=== PATIENT | female | born 1970 | race Caucasian/White ===

== ENCOUNTER 2024-12-16 17:54 | Emergency (ER) | payer BC, MEDICAID, SELFPAY ==
[2024-12-16 18:02] VITALS: BP 122/79; PULSE 84; RESP 16; TEMP 36.7; O2SAT 99; BMI 25.7
--- NOTE | 2024-12-16 18:30 | XRR_ITS ---
PROCEDURE INFORMATION: Exam: XR Abdomen Exam date and time: 12/16/2024 6:35 PM Age: 54 years old Clinical indication: Abdominal pain; Localized; Right upper quadrant (ruq) TECHNIQUE: Imaging protocol: Radiologic exam of the abdomen. Views: 2 Views. Upright and supine views. COMPARISON: No relevant prior studies available. FINDINGS: Gastrointestinal tract: Normal. No bowel dilation. Intraperitoneal space: Normal. No free air. Bones/joints: Unremarkable for age. XR/XR acute abdomen series 30841 IMPRESSION: No acute findings.
--- NOTE | 2024-12-16 18:38 | ED_ITS ---
HPI - Abdominal Pain 2 General: Chief Complaint: Abdominal Pain Stated Complaint: pain under right rib Time Seen by Provider: 12/16/24 18:29 History of Present Illness: 54-year-old woman who presents emergency room with abdominal issues over the last couple of months. She says she has been having trouble with constipation. She developed some right sided abdominal pain. However she says here in the emergency room she had a large volume episode of diarrhea while in the waiting room. (In the bathroom in the waiting room). No nausea or vomiting. No specific changes today, she says she just came to the emergency room because her significant other said that if she was not better today he was bringing her in to be checked out. No fevers. No chest pain. No shortness of breath. Related Data Previous Rx's ?Medication ?Instructions ?Recorded glycerin (child) 1 supp ME DAILY PRN constipa tion 12/16/24 #12 ea magnesium citrate 296 ml PO ONCE #296 mL 12/16 polyethylene glycol 3350 17 17 g PO DAILY #510 grams 0 12/16/24 gram/dose oral powder (Miralax) Allergies Allergy/AdvReac Type Severity Reaction Status Date / Time No Known Allergies Allergy Verified 12/16/24 18:06 Review of Systems 2 Narrative: Constitutional symptoms: Negative except as documented in HPI. Skin symptoms: Negative except as documented in HPI. Eye symptoms: Negative except as documented in HPI. ENMT symptoms: Negative except as documented in HPI. Respiratory symptoms: Negative except as documented in HPI. Cardiovascular symptoms: Negative except as documented in HPI. Gastrointestinal symptoms: Negative except as documented in HPI. Genitourinary symptoms: Negative except as documented in HPI. Musculoskeletal symptoms: Negative except as documented in HPI. Neurologic symptoms: Negative except as documented in HPI. Psychiatric symptoms: Negative except as documented in HPI. Endocrine symptoms: Negative except as documented in HPI. Physical Exam 2 Narrative: EXAM NARRATIVE: General: Alert, no acute distress. Skin: Warm, dry. Head: Normocephalic, atraumatic. Neck: Supple, trachea midline. Eye: Extraocular movements are intact. Ears, nose, mouth and throat: mucosa moist. Cardiovascular: Regular, Normal peripheral perfusion. Respiratory: Lungs are clear to auscultation, respirations are non-labored, breath sounds are equal, Symmetrical chest wall expansion. Gastrointestinal: Soft, some mild diffuse tenderness in the right side of the abdomen, Non distended Musculoskeletal: Normal ROM, no deformity. Neurological: Alert and oriented, No focal neurological deficit observed. Psychiatric: Cooperative, appropriate mood & affect. Course 2 Vital Signs: Vital signs: Vital Signs Temperature 98.0 F 12/16/24 18:02 Pulse Rate 83 12/16/24 20:08 Respiratory Rate 16 12/16/24 18:02 Blood Pressure 122/79 12/16/24 18:02 Pulse Oximetry 99 12/16/24 20:08 Oxygen Delivery Me thod Room Air 12/16/24 20:08 MDM - Abdominal Pain Medical Decision Making Medical decision making: Differential diagnosis including but not limited to and based on the above HPI, review of systems and physical exam: - patient with complaint of constipation: Small bowel obstruction. Gastroparesis. Constipation. Also evaluation for urinary retention, liver disease, renal failure. Orders placed to evaluate differential diagnosis based on the above differential, HPI and physical exam Acute abdominal series: chest x-ray: No acute process. No obvious infiltrates. No pneumothorax. No cardiomegaly. This was reviewed and interpreted by myself the emergency room physician Abdomen x-ray: Nonspecific bowel gas pattern. No evidence of free air or obstruction. This was reviewed and interpreted by myself the emergency room physician. I also reviewed the radiology report. Lab Review: Laboratory results were reviewed and interpreted by myself the emergency room physician. Lab work is unremarkable. No leukocytosis. No anemia. No renal failure. Liver enzymes normal. Lipase is normal CT of the abdomen pelvis without contrast: No acute process. She does have some gallstones but no cholecystitis. This was reviewed and interpreted by myself the emergency room physician. I also reviewed the radiology report. I reviewed the patient's medical record. Reexamination: Patient remained stable. No increased work of breathing. No altered mental status. No focal motor deficits. Assessment and plan: Abdominal pain Constipation - Discharged home - Discussed plan with patient. Answered any questions. - Evaluation and treatment of this problem were appropriate in the emergency setting. Lab Data 12/16/24 20:00 12/16/24 20:00 Labs/Radiology: Radiology Impressions Chest/Abdomen X-ray 12/16/24 18:30 IMPRESSION: No acute findings. Abdomen/Pelvis CT 12/16/24 18:51 IMPRESSION: 1. Cholelithiasis without evidence of acute cholecystitis. The common bile duct is dilated without radiodense stone. Consider further evaluation with MRCP to exclude choledocholithiasis. 2. Small hiatal hernia. Laboratory Results WBC 8.19 10^3/uL (3.29-11.43) 12/16/24 20:00 RBC 4.60 10^6/uL (3.85-5.65) 12/16/24 20:00 Hgb 13.40 g/dL (11.27-16.99) 12/16/24 20:00 Hct 39.9 % (36-47) 12/16/24 20:00 MCV 86.7 fl (85-98) 12/16/24 20:00 MCH 29.1 pg (27-33) 12/16/24 20:00 MCHC 33.6 g/dL (30-55) 12/16/24 20:00 RDW 12.8 % (12.1-15.1) 12/16/24 20:00 Plt Count 262 10^3/cmm (157-399) 12/16/24 20:00 MPV 10.0 fL (7.4-10.4) 12/16/24 20:00 Neut % (Auto) 44.2 % 12/16/24 20:00 Lymph % (Auto) 47.3 % 12/16/24 20:00 Mariposa % (Auto) 5.1 % 12/16/24 20:00 Eos % (Auto) 2.3 % 12/16/24 20:00 Baso % (Auto) 1.0 % 12/16/24 20:00 Neut # (Auto) 3.62 10^3/uL (1.8-7.7) 12/16/24 20:00 Lymph # (Auto) 3.9 10^3/uL (0.8-4.8) 12/16/24 20:00 Mariposa # (Auto) 0.4 10^3/uL (0.2-0.9) 12/16/24 20:00 Eos # (Auto) 0.2 10^3/uL (0.0-0.8) 12/16/24 20:00 Baso # (Auto) 0.1 10^3/uL (0.0-0.1) 12/16/24 20:00 Nucleated RBC % (auto) 0 % 12/16/24 20:00 Nucleated RBCs # 0.0 /100WBC 12/16/24 20:00 Sodium 140 mmol/L (136-145) 12/16/24 20:00 Potassium 3.8 mmol/L (3.5-5.1) 12/16/24 20:00 Chloride 103 mmol/L (98-107) 12/16/24 20:00 Carbon Dioxide 28 mmol/L (22-29) 12/16/24 20:00 Anion Gap 12.8 (5-19) 12/16/24 20:00 BUN 13 mg/dL (6-20) 12/16/24 20:00 Creatinine 0.6 mg/dL (0.5-0.9) 12/16/24 20:00 GFR Calculation 104.2 mL/min (90-130) 12/16/24 20:00 Glucose 93 mg/dL (65-115) 12/16/24 20:00 Calculated Osmolality 290 mOsm/kg (285-295) 12/16/24 20:00 Calcium 10.5 mg/dL (8.5-10.5) 12/16/24 20:00 Total Bilirubin 0.3 mg/dL (0.15-1.2) 12/16/24 20:00 AST 19 U/L (0-32) 12/16/24 20:00 ALT 12 U/L (0-33) 12/16/24 20:00 Alkaline Phosphatase 119 U/L (35-105) H 12/16/24 20:00 Total Protein 7.4 g/dL (6.6-8.7) 12/16/24 20:00 Albumin 4.4 g/dL (3.5-5.2) 12/16/24 20:00 Globulin 3.0 g/dL (1.3-4.6) 12/16/24 20:00 Lipase 29 U/L (13-60) 12/16/24 20:00 All radiology interpretation(s) finalized by discharge Discharge Plan Discharge Patient Disposition: Home Clinical Impression: Abdominal pain, Constipation Condition: Stable Prescriptions: New magnesium citrate Solution 296 ml PO ONCE Qty: 296 0RF polyethylene glycol 3350 [Miralax] 17 gram/dose powder 17 g PO DAILY Qty: 510 0RF Rx Instructions: Take 1-2 scoops daily for the next 3 months to keep stools soft glycerin (child) Suppository 1 supp ME DAILY PRN (Reason: constipation) Qty: 12 0RF Discharge Orders: Discharge ED (Routine); Ordered 12/16/24 Ordered By: Sanaz Keenan Discharge Diet: Usual diet Discharge Activity: Increase activity as tolerated Patient Instructions: Constipation (ED), Abdominal Pain (ED), Opioid Safety, Pain Management Activity Restrictions/Additional Instructions: Thank you for choosing [facility] for your healthcare needs today. Please realize this is an emergency room and that we are providing you with a medical screening exam and this may not be complete and all inclusive of all the testing and or work up that you may need to determine your ailment or severity of your illness. You have been screened and evaluated and felt safe for discharge. Health conditions do change or evolve sometimes and as such it is important that you follow up with your Primary Doctor to be re checked, 3-5 days is a general good time frame for follow up. You are always welcome to return to the ED for re assessment if your symptoms are worsening or you have new concerns Print Language: Thai Coding Level of Care Code ED Wellness Director for Amadeo Spivey
--- NOTE | 2024-12-16 18:51 | CTR_ITS ---
PROCEDURE INFORMATION: Exam: CT Abdomen And Pelvis With Contrast Exam date and time: 12/16/2024 7:58 PM Age: 54 years old Clinical indication: Abdominal pain; Localized; Right upper quadrant (ruq); Prior surgery; Surgery date: 6+ months; Surgery type: Tubal. Csection; C/O ruq pain with constipation TECHNIQUE: Imaging protocol: Computed tomography of the abdomen and pelvis with contrast. Radiation optimization: All CT scans at this facility use at least one of these dose optimization techniques: automated exposure control; mA and/or kV adjustment per patient size (includes targeted exams where dose is matched to clinical indication); or iterative reconstruction. Contrast material: OMNI 350; Contrast volume: 100 ml; Contrast route: INTRAVENOUS (IV); COMPARISON: CR (ABDOMEN, ) 12/16/2024 6:35 PM RADIATION DOSE METRICS: Total DLP (mGy-cm): 457.68 FINDINGS: Diaphragm: A small hiatal hernia present. Liver: Tiny hepatic cysts noted. Otherwise, the liver is unremarkable. Gallbladder and biliary ducts: There are multiple gallstones without gallbladder wall thickening or pericholecystic fluid. The common bile duct is dilated measuring up to 1.3 cm in diameter. No radiodense ductal stones identified. Minimal intrahepatic biliary ductal dilatation. Pancreas: Normal. No ductal dilation. Spleen: Normal. No splenomegaly. Adrenal glands: Normal. No mass. Kidneys and ureters: Normal. No hydronephrosis. Stomach and bowel: Unremarkable. No obstruction. No mucosal thickening. Appendix: No evidence of appendicitis. Intraperitoneal space: Unremarkable. No free air. No significant fluid collection. Vasculature: Mild scattered calcific plaque involves the abdominal aorta. The abdominal aorta is free of aneurysm and dissection. Lymph nodes: Unremarkable. No enlarged lymph nodes. Urinary bladder: Unremarkable as visualized. Reproductive: Unremarkable as visualized. Bones/joints: Multilevel degenerative changes involve the spine. There is grade 2 anterolisthesis of L4 in respect to L5 secondary to bilateral L4 pars defects. Soft tissues: Unremarkable. CT/CT abdomen pelvis w con* [id number] IMPRESSION: 1. Cholelithiasis without evidence of acute cholecystitis. The common bile duct is dilated without radiodense stone. Consider further evaluation with MRCP to exclude choledocholithiasis. 2. Small hiatal hernia.
[2024-12-16] MEDS: iohexol 350 mg/mL 500 mL Btl (per mL) IV (20:01)
[2024-12-16 20:08] VITALS: PULSE 83; O2SAT 99
[2024-12-16 20:09] LABS: Basophils # 0.1 10^3/uL (0.0-0.1); Eosinophils # 0.2 10^3/uL (0.0-0.8); Eosinophils % 2.3 %; Hematocrit 39.9 % (36-47); Lymphocytes # 3.9 10^3/uL (0.8-4.8); Lymphocytes % 47.3 %; Mean Corpuscular HGB Conc 33.6 g/dL (30-55); Mean Corpuscular Hemoglobin 29.1 pg (27-33); Mean Corpuscular Volume 86.7 fl (85-98); Monocytes # 0.4 10^3/uL (0.2-0.9); Monocytes % 5.1 %; Neutrophils # 3.62 10^3/uL (1.8-7.7); Neutrophils % 44.2 %; Nucleated Red Blood Cells % 0 %; Platelet Count 262 10^3/cmm (157-399); Red Cell Distribution Width 12.8 % (12.1-15.1); White Blood Count 8.19 10^3/uL (3.29-11.43)
[2024-12-16 20:42] LABS: Alanine Aminotransferase 12 U/L (0-33); Albumin Level 4.4 g/dL (3.5-5.2); Alkaline Phosphatase 119 U/L (35-105); Anion Gap 12.8 (5-19); Aspartate Amino Transferase 19 U/L (0-32); Blood Urea Nitrogen 13 mg/dL (6-20); Calcium 10.5 mg/dL (8.5-10.5); Carbon Dioxide 28 mmol/L (22-29); Chloride 103 mmol/L (98-107); Glomerular Filtration Rate 104.2 mL/min (90-130); Glucose 93 mg/dL (65-115); Lipase 29 U/L (13-60); Osmolality Calculated 290 mOsm/kg (285-295); Potassium 3.8 mmol/L (3.5-5.1); Sodium 140 mmol/L (136-145); Total Bilirubin 0.3 mg/dL (0.15-1.2); Total Protein 7.4 g/dL (6.6-8.7)
[2024-12-16 21:21] VITALS: BP 118/84; PULSE 93; RESP 16; O2SAT 96
== END 2024-12-16 21:21 | disposition home or self-care (01) ==
PROVIDERS: Emergency Provider Emergency Medicine
DX: R10.9 Unspecified abdominal pain (principal); K59.00 Constipation, unspecified
CPT/HCPCS: 74022; 74177; 80053; 83690; 85025; 99285

== ENCOUNTER 2025-04-19 06:52 | Outpatient (CLI) | payer BC, MEDICAID, SELFPAY ==
--- NOTE | 2025-04-19 07:15 | MR_ITS ---
WS: [id number] MRI/MRCP OF THE ABDOMEN WITHOUT GADOLINIUM ENHANCEMENT TECHNIQUE: Coronal T2 Fase BH, Axial T2 Fase BH, Axial T2 FS BH, Zxial 3D Guillermo BH, Axial DWI BH, 2D MRCP Radial BH, 3D MRCP (Resp), and Axial 3D Dyn BH Post sequences. CLINICAL INFORMATION: enlarged bile duct COMPARISON: None. FINDINGS: Fatty liver. Dense cholelithiasis. Gallstones extend into the gallbladder neck near the cystic duct. Tortuous and spiral configuration of the cystic duct with proximal dilatation. Cystic duct appears to course around the common hepatic duct before insertion. No gallbladder wall thickening or pericholecystic fluid. Diffuse fusiform dilatation of the common hepatic and common bile duct although no visualized choledocholithiasis. Dilated common bile duct measures 14 mm. No evidence of pancreatic head mass. Normal pancreatic duct. Pancreatic head appears normal. Main portal vein and splenic vein appear patent. Celiac and SMA appear patent. Normal caliber abdominal aorta. No hydronephrosis in either kidney. Small bilateral renal cysts. Normal adrenal glands. Small esophageal hernia. Mild fatty infiltration of the liver. MR/MR MRCP [id number] Impression: 1. Dense cholelithiasis. No gallbladder wall thickening or pericholecystic flu id. 2. Gallstones extends near the cystic duct with dilatation of the cystic duct. Tortuous and spiral configuration to the cystic duct with dilatation of proxim al cystic duct. Cystic duct courses around the common hepatic duct before inser tion. 3. Significant fusiform dilatation of the common hepatic and common bile duct although no visualized choledocholithiasis. Common bile duct measures 14 mm. Re commend further evaluation with ERCP to evaluate for occult choledocholithiasis or ampullary stricture. Recommend correlation with biliary function studies. 4. No evidence of pancreatic head mass. Normal pancreatic duct. 5. Fatty liver. 6. Small esophageal hiatal hernia. 7. No other acute findings.
== END 2025-04-19 06:53 | disposition home or self-care (01) ==
PROVIDERS: PCP Internal Medicine; Visit Provider Student in an Organized Health Care Education/Training Program
DX: K82.8 Other specified diseases of gallbladder (principal); K80.20 Calculus of gallbladder without cholecystitis without obstruction; R93.3 Abnormal findings on diagnostic imaging of other parts of digestive tract; K76.0 Fatty (change of) liver, not elsewhere classified; K44.9 Diaphragmatic hernia without obstruction or gangrene; R93.89 Abnormal findings on diagnostic imaging of other specified body structures; N28.1 Cyst of kidney, acquired
CPT/HCPCS: 74181

== ENCOUNTER 2025-04-25 06:50 | Day surgery (SDC) | payer BC, MEDICAID, SELFPAY ==
[2025-04-25 07:08] VITALS: BP 102/81; PULSE 87; RESP 18; TEMP 36.1; O2SAT 95
[2025-04-25 07:09] VITALS: BMI 26.5
--- NOTE | 2025-04-25 07:43 | ANES.PREANE2 ---
Pre-Anesthetic Assessment Height/Weight: Height 1.6 m Weight 68.039 kg Temp Pulse Resp BP Pulse Ox O2 Del Method 97.0 F L 87 18 102/81 95 Room Air 04/25/25 07:08 04/25/25 07:08 04/25/25 07:08 04/25/25 07:08 04/25/25 07:08 04/25/25 07:08 Operation Date: 04/25/25 08:00 Proposed Procedures p EGD 40979, R12(Not Applicable) - Colin Campos MD Familial anesthetic complications: None Last took methadone yesterday Was Beta Emma taken within 24 hours: N/A Was Clonidine taken within 24 hours: N/A Last intake: Intake Last Liquid Date 04/24/25 Last Liquid Time 23:30 Last Solid Date 04/24/25 Last Solid Time 23:30 Social Tobacco and No alcohol 0.5 pack(s) per day 30 pack years Exam alert, oriented x 3, clear to auscultation bilaterally and regular rate & rhythm Airway Submandibular: within normal limits Cervical ROM: within normal limits Mallampati: Class II Dentition: chipped Comments: Comments: Several missing, denies anything to be loose History/ROS No significant history except as noted and No significant complaints Pulmonary Seasonal allergies CV/HEM None reported None reported Hepatic Hepatitis (Treated for Hep C) GI Gastroesophageal Reflux Disease (None this morning) Dilated CBD Metabolic None reported Musc/skel Scoliosis Neuropsych Neuropathy Anesthetic Plan ASA status: 3 Anesthesia: Anesthesia Evaluation, General and MAC Risk of > 500 ml blood loss (7ml/kg in children): No Medications/Allergies Home Medications ?Medication ?Instructions ?Recorded ?Confirmed ?Last Taken ?Type glycerin (child) 1 supp IA DAILY PRN constipation 12/16/24 04/20/25 04/24/25 Rx #12 ea olanzapine 5 mg tablet 4 mg PO DAILY 04/20/25 04/20/25 04/20/25 History methadone 40 mg soluble tablet 60 mg PO DAILY 04/25/25 04/25/25 04/24/25 History Allergies Allergy/AdvReac Type Severity Reaction Status Date / Time duloxetine Allergy ADR-Abdominal Verified 04/25/25 07:01 Pain Current Medications Generic Name Dose Route Start Last Admin Trade Name Freq PRN Reason Stop Dose Admin Sodium Chloride 1,000 mls @ 15 mls/hr 04/25/25 06:53 04/25/25 07:08 Sodium Chloride 0.9% IV 04/26/25 06:52 15 mls/hr .Q24H PRN Administration COLONOSCOPY FLUIDS PFSH Anesthesia Family History (Updated 03/30/25 @ 13:[address]) Family/Other Cancer lung, breast Diabetes Heart disease Social History (Updated 03/30/25 @ 13:[address]) Smoking and tobacco/nicotine status: current every day tobacco/nicotine user Alcohol intake: current Alcohol intake frequency: holidays/special occasions only
--- NOTE | 2025-04-25 08:05 | W.PM.OPSUD ---
Surgery/Procedure H&P Update DATE OF PROCEDURE: April 25, 2025 DATE H&P PERFORMED: 03/30/25 H&P UPDATE INFORMATION: I have reviewed H&P completed within last 30 days, I have examined patient prior to procedure and No changes to prior documentation PLANNED PROCEDURE: Operation Date: 04/25/25 08:00 Proposed Procedures p EGD 56298, R12(Not Applicable) - Colin Campos MD
[2025-04-25 08:16] VITALS: BP 108/73; PULSE 76; RESP 14; TEMP 36.3; O2SAT 93
[2025-04-25 08:30] VITALS: BP 118/74; PULSE 72; RESP 16; O2SAT 96
[2025-04-25 08:45] VITALS: BP 115/76; PULSE 69; RESP 16; O2SAT 96
== END 2025-04-25 09:00 | disposition home or self-care (01) ==
PROVIDERS: PCP Internal Medicine; Visit Provider Student in an Organized Health Care Education/Training Program
PROC: 0DJ08ZZ Inspection of Upper Intestinal Tract, Via Natural or Artificial Opening Endoscopic (ICD-10-PCS; principal; 2025-04-25 08:00)
DX: K29.50 Unspecified chronic gastritis without bleeding (principal); K44.9 Diaphragmatic hernia without obstruction or gangrene; K21.9 Gastro-esophageal reflux disease without esophagitis; K82.9 Disease of gallbladder, unspecified; M41.9 Scoliosis, unspecified; F17.210 Nicotine dependence, cigarettes, uncomplicated; Z79.899 Other long term (current) drug therapy
CPT/HCPCS: 43239; 45380; 88305; J2704; J7030

== ENCOUNTER 2025-06-09 13:00 | Emergency (ER) | payer BC, MEDICAID, SELFPAY ==
--- OUTSIDE RECORDS SUMMARY | 2025-05-09 10:00 | XMS_ITS ---
Author Organization [facility] Address [address] [place] [address] Care Team Providers Care Virology Teacher Name Role Phone Santana Recinos Primary Care Provider REASON FOR VISIT RASH Encounters Encounter Location Date Provider Diagnosis [facility] [address] [place] [phone] 05/09/2025 Santana Recinos Plan Of Treatment No Information Progress Notes * THEODORE TAYLOR RDOB:[birth year] (55 yo F)Acc No.[id number]:05/09/2025 Progress Notes Patient: Easton FULLERTHEODORE ALMENDAREZ Provider: Wilber Recinos MD :1970 A ge:55 Y S ex:Female Date:05/09/2025 Address:[address] [place] [id number] Subjective: * Chief Complaints: * R TREVOR Billing Information: * Procedure Codes: Care Plan Details* * Electronic signature of Leonel Recinos MD on 06/09/2025 at 01:06 PM CDT Sign off status: Pending * Provider: Wilber Recinos MD Date: 05/09/2025 Generated for Fab bloom/Luis Alberto/Kaitlinitting on: 06/09/2025 01:06 PM CDT
--- OUTSIDE RECORDS SUMMARY | 2025-05-10 11:20 | XMS_ITS ---
Author Organization [facility] Address [address] [place] [address] Care Team Providers Care Tram Operator Name Role Phone Santana Recinos Primary Care Provider REASON FOR VISIT Poison Nayeli Encounters Encounter Location Date Provider Diagnosis [facility] [address] [place] [phone] 05/10/2025 Santana Recinos Plan Of Treatment No Information Progress Notes * THEODORE TAYLOR RDOB:[birth year] (55 yo F)Acc No.[id number]:05/10/2025 Progress Notes Patient: Easton THEODORE BERNARDO Provider: Wilber Recinos MD :1970 A ge:55 Y S ex:Female Date:05/10/2025 Address:[address] [place], [place] [phone] Subjective: * Chief Complaints: * P oison Nayeli Plan: * Preventive Medicine: Screenings: A s Listed Below * . L AST WELLNESS VISIT (if today's visit is wellness, use today's date): Date: 0 07/14/2024 * B REAST CANCER SCREENING: Date of most recent screenin 12/06/2022 * C ERVICAL CANCER SCREENING: Cancer screening cervical (age 21-64)?Annual pap smear * Date of the last PAP Smear : 0 07/17/2022 C OLORECTAL CANCER SCREENING: Date of last colonoscopy 0 06/10/2024 [facility] V ACCINATIONS: Influenza vaccinations: * , Refuses Billing Information: * Procedure Codes: Care Plan Details* * Electronic signature of Leonel Recinos MD on 06/09/2025 at 01:06 PM CDT Sign off status: Pending * Provider: Wilber Recinos MD Date: 0 05/10/2025 Generated for Fab bloom/Luis Alberto/Ami on: 0 06/09/2025 01:06 PM CDT
--- OUTSIDE RECORDS SUMMARY | 2025-05-29 10:00 | XMS_ITS ---
Author Organization [facility] Address [address] [place] [address] Care Team Providers Care Process Area Supervisor Name Role Phone Santana Recinos Primary Care Provider [phone] REASON FOR VISIT MEDICATION, Pt. is due for a cervical cancer screening Encounters Encounter Location Date Provider Diagnosis [facility] [address] [place] [phone] 05/29/2025 Santana Recinos Plan Of Treatment No Information Progress Notes * THEODORE TAYLOR RDOB:[birth year] (55 yo F)Acc No.[id number]:05/29/2025 Progress Notes Patient: [place]on THEODORE BERNARDO Provider: Wilber Recinos MD :1970 A ge:55 Y S ex:Female Date:05/29/2025 Address:[address] [place], [place] [phone] Subjective: * Chief Complaints: * M EDICATIONPt. is due for a cervical cancer screening Plan: * Preventive Medicine: Screenings: A s [...] SCREENING: Date of last colonoscopy 0 06/10/2024 [facility] V ACCINATIONS: Influenza vaccinations: * , Refuses Billing Information: * Procedure Codes: Care Plan Details* * Electronic signature of Leonel Recinos MD on 06/09/2025 at 01:06 PM CDT Sign off status: Pending * Provider: Wilber Recinos MD Date: 05/29/2025 Generated for Fab bloom/Luis Alberto/Ami on: 06/09/2025 01:06 PM CDT
--- OUTSIDE RECORDS SUMMARY | 2025-06-09 13:07 | XMS_ITS | Patient Health Record ---
Author Organization [facility] Address [address] [place] [address] Care Team Providers Care Haulage Boss Name Role Phone Santana Recinos Primary Care Provider [phone] Allergies Allergen (clinical drug ingredient) Drug/Non Drug Allergy documented on EMR Reaction Allergy Type Onset Date Status buprenorphine / naloxone Buprenorphine HCl-Naloxone HCl Unknown Drug Allergy Active Results Component Value Reference Range Notes Diagnostic Colonoscopy-[id number] Reviewed date:06/13/2024 11:19:48 AM Interpretation: Performing Lab: Notes/Report: Reason For Referral Reason First available [facility] general surgery. Symptomatic cholelithiasis. Diagnosis 1 Calculus of gallblad jeronimo with chronic cholecystitis with obstruction (K80.11) Referral Organization [facility] Referring Provider First Name Grady lambert Referring Provider Last Name Jorje Referring Provider Speciality Internal M edicine Referred Provider Specialty General Surg inge General Notes Ana Cristina Flores 05:10:00 PM >faxed [facility] General surgeryWisam Heidi 04/12/2025 10:53:29 AM >CAN NOT GET AHOLD OF GENERAL SURGERY YET, Debbie Pagan 04/18/2025 04:28:44 PM >Jose Marcelo pt was [facility] done 04/19/25, Karol Joel 04/19/2025 08:14:59 AM >PROGRESS NOTES IN REFERRAL FILE Referral Priority Routine Medications Medication SIG (Take, Route, Frequency, Duration) Notes Start Date End Date Status Pantoprazole Sodium 40 MG Tablet Delayed Release 1 tablet 1/2 to 1 hour before morning meal Orally Once a day; Duration: 30 day(s) 11/10/2024 Active OLANZapine 5 MG Tablet 1 tablet Orally O nce a day; Duration: 90 days Active DULoxetine HCl 60 MG Capsule Delayed Release Particles 1 capsule Orally Once a day; Duration: 90 days 01/25/2025 Active Ondansetron HCl 4 MG Tablet 1 tablet Orally every six hours PRN; Duration: 30 days 12/12/2024 Active tiZANidine HCl 4 MG Tablet 1 tablet at bedtime as needed Orally Once a day; Duration: 90 days 12/07/2025 Active Buprenorphine HCl-Naloxone HCl 8-2 MG Tablet Sublingual 1 tablet under the tongue and allow to dissolve Sublingual TID; Duration: 30 days 02/14/2025 06/14/2025 Not-Taking Ibuprofen 800 MG Tablet 1 tablet with fo od or milk as needed Orally every 8 hrs; Duration: 30 days 03/17/2025 07/15/2025 Active Immunizations Vaccine Route Administration Date Status Comme nts Flucelvax Trivalent, Syringe 0.5 mL, PF Unknown 025 Refused Social History Tobacco Use: Social History Observation Description Date Details (start date - stop date) Current Smoker NA - NA Social History Depression Screening Social Info Question Answer Notes depression screening findings Findings Negative (0 -4) 01/02/25 PHQ-9 Little interest or p yanely in doing things Not at all Feeling down, depressed, or hopeless Not at all Trouble falling or staying asleep, or sleeping t oo much Not at all Feeling tired or having little energy Not at all Poor appetite or overeating Not at all Feeling bad about yourself, or that you are a failure, or have let yourself or your family down Not at all Trouble concentrating on thi ngs, such as reading the newspaper or watching television Not at all Moving or speaking so slowly that other people could have noticed. Or the opposite ? being so fidgety or restless that you have been moving around a lot more than usual Not at all Thoughts that you would be b brett off , or of hurting yourself in some way Not at all Total Score 0 Drugs/Alcohol: Social Info Question Answer Notes Drugs Have you used drugs other than those for medical reasons in the past 12 months? No Drug/Alcohol: Social Info Question Answer Notes AUDIT-C (Standard) Did you have a drink containing alcohol in the past year? No Points 0 Interpretation Negative Tobacco Use: Social Info Question Answer Notes Tobacco Control (Standard) Tobacco use: Current smoker How often do you smoke cigarettes? Every day How many cigarettes a day do you smoke? 6-10 Section Notes: Tobacco: 04/21/24 Depression: 10/07/24 Tobacco: 11/10/24 Depression: 10/07/24 Tobacco: 01/02/25 Depression: 01/02/25 Tobacco: 01/02/25 Depression: 01/02/25 CIME Dep/tob: 01/02/25 CIME Dep/tob: 01/02/25 Tobacco: 04/21/24 Depression: 10/07/24 CIME Dep/tob: 01/02/25 Problems Problem Type SNOMED Code ICD Code Onset Dates Problem Status W/U Status Risk Notes Problem Tobacco user (232822527) Nicotine dependence, cigarettes, uncomplicated (F17.210) Active confirmed Problem Chronic cholecystitis due to gallbladder calculus with obstruction (6181353686776054 ) Calculus of gallbladder with chronic cholecystitis with obstruction (K80.11) Active confirmed Problem Cervical radiculopathy (01513294) Radiculopathy, cervical region (M54.12) Active confirmed Problem Screening for colon cancer (202052031) Screening for colon cancer (Z12.11) Active confirmed Problem Bipolar 1 disorder (306868599) Bipolar 1 disorder (F31.9) Active confirmed Problem Sciatica (37342941) Sciatica of right side (M54.31) Active confirmed Problem Lumbar radiculopathy (090006635) Lumbar back pain with radiculopathy affecting right lower extremity (M54.16) Active confirmed Problem Neck pain (97674191) Cervical pain (neck) (M54.2) Active confirmed Problem History of hepatitis C (28004105371806) History of hepatitis C (Z86.19) Active confirmed Problem Tobacco use (417120768) Tobacco use disorder (F17.200) Active confirmed Vital Signs Heart Rate 80 /min 03/28/2025 Temperature 97.7 degrees Fahrenheit 03/28/2025 Blood pressure diastolic 81 mm Hg 03/28/2025 Oximetry 95 % 03/28/2025 Height-cm 162.56 cm 03/28/2025 Weight-kg 71.21 kg 03/28/2025 Height 64 in 03/28/2025 Blood pressure systolic 124 mm Hg 03/28/2025 Weight 157 lbs 03/28/2025 BMI 26.95 kg/m2 03/28/2025 Encounters Encounter Location Date Provider Diagnosis [facility] [address] [place], [place] [phone] 06/10/2024 Santana Recinos Screening for colon cancer Z12.11 [facility] [address] [address] 06/20/2024 Santana Recinos Bipolar 1 disorder F31.9 ; History of hepatitis C Z86.19 ; Screening for colon cancer Z12.11 ; Cervical pain (neck) M54.2 ; Cigarette smoker F17.210 and Body mass index [BMI] 24.0-24.9, adult Z68.24 [facility] [address] [place] [address] 07/12/2024 Santana Recinos Lumbar back pain wit h radiculopathy affecting right lower extremity M54.16 ; History of hepatitis C Z86.19 and Cigarette smoker F17.210 [facility] [address] [place] [phone] 08/02/2024 Santana Recinos Lumbar back pain wit h radiculopathy affecting right lower extremity M54.16 ; Radiculopathy, cervical region M54.12 ; Cigarette smoker F17.210 and Body mass index [BMI] 24.0-24.9, adult Z68.24 [facility] [address] [place] [phone] 09/05/2024 Santana Recinos Cervical pain (neck) M54.2 and Radiculopathy, cervical region M54.12 [facility] [address] [place] [address] 10/07/2024 Santana Recinos Lumbar back pain wit h radiculopathy affecting right lower extremity M54.16 ; History of hepatitis C Z86.19 and Depression screen Z13.31 [facility] [address] [place] [address] 11/10/2024 Santana Recinos Dyspepsia R10.13 ; History of hepatitis C Z86.19 ; Lumbar back pain with radiculopathy affecting right lower extremity M54.16 and Cervical pain (neck) M54.2 [facility] [address] [place] [phone] 12/12/2024 Christelisa Recinos Lumbar back pain wit h radiculopathy affecting right lower extremity M54.16 ; History of hepatitis C Z86.19 ; Nicotine dependence, cigarettes, uncomplicated F17.210 ; Tobacco use disorder F17.200 and Depression screen Z13.31 [facility] [address] [address] 01/02/2025 Christophbaron Recinos Lumbar back pain wit h radiculopathy affecting right lower extremity M54.16 ; Depression screen Z13.31 and Cigarette nicotine dependence without complication F17.210 [facility] [address] [address] 01/25/2025 Christophbaron Recinos Cervical pain (neck) M54.2 ; Radiculopathy, cervical region M54.12 ; Lumbar back pain with radiculopathy affecting right lower extremity M54.16 ; Depression screen Z13.31 ; Acute nausea with nonbilious vomiting R11.2 and Diarrhea R19.7 [facility] [address] [address] 02/14/2025 Christophbaron Recinos Cervical pain (neck) M54.2 ; Lumbar back pain with radiculopathy affecting right lower extremity M54.16 ; Tobacco use disorder F17.200 and Depression screen Z13.31 [facility] [address] [place] [phone] 03/17/2025 Santana Rosenbaumran Chronic constipation K59.09 ; Depression screen Z13.31 ; Encounter for immunization Z23 and Immunization not carried out because of patient refusal Z28.21 [facility] [address] [place] [phone] 03/28/2025 Santana Recinos Calculus of gallbladder with chronic cholecystitis with obstruction K80.11 [facility] [address] [address] 06/20/2024 [facility] [address] [place] [address] 07/12/2024 [facility] [address] [place] [address] 08/09/2024 [facility] [address] [place] [address] 09/02/2024 [facility] [address] [place] [address] 10/11/2024 [facility] [address] [place] [address] 11/03/2024 [facility] [address] [place] [address] 11/14/2024 [facility] [address] [place] [address] 01/26/2025 [facility] Cervical pain (neck) M54.2 Assessments Encounter Date Diagnosis (ICD Code) Assessment Notes Treatment Notes Treatment Clinical Notes Section Notes 06/10/2024 Screening for colon cancer (ICD-10 - Z12.11) 06/20/2024 Bipolar 1 disorder (ICD-10 - F31.9) 06/20/2024 History of hepatitis C (ICD-10 - Z86.19) 08/02/2024 Lumbar back pain with radiculopathy affecting right lower extremity (ICD-10 - M54.16) Doing really well 08/02/2024 Radiculopathy, cervical region (ICD-10 - M54.12) 07/12/2024 Lumbar back pain with radiculopathy affecting right lower extremity (ICD-10 - M54.16) She has failed NSAIDs and local injection. She needs imaging. 07/12/2024 History of hepatitis C (ICD-10 - Z86.19) 09/05/2024 Cervical pain (neck) (ICD-10 - M54.2) 11/10/2024 Dyspepsia (ICD-10 - R10.13) 11/10/2024 History of hepatitis C (ICD-10 - Z86.19) 12/12/2024 Lumbar back pain with radiculopathy affecting right lower extremity (ICD-10 - M54.16) 12/12/2024 History of hepatitis C (ICD-10 - Z86.19) 10/07/2024 Lumbar back pain with radiculopathy affecting right lower extremity (ICD-10 - M54.16) 10/07/2024 History of hepatitis C (ICD-10 - Z86.19) 01/02/2025 Lumbar back pain with radiculopathy affecting right lower extremity (ICD-10 - M54.16) 01/02/2025 Depression screen (ICD-10 - Z13.31) 01/25/2025 Cervical pain (neck) (ICD-10 - M54.2) 01/25/2025 Radiculopathy, cervical region (ICD-10 - M54.12) 01/26/2025 Cervical pain (neck) (ICD-10 - M54.2) 02/14/2025 Cervical pain (neck) (ICD-10 - M54.2) 03/17/2025 Chronic constipation (ICD-10 - K59.09) 03/28/2025 Calculus of gallbladder with chronic cholecystitis with obstruction (ICD-10 - K80.11) 03/17/2025 Depression screen (ICD-10 - Z13.31) 02/14/2025 Lumbar back pain with radiculopathy affecting right lower extremity (ICD-10 - M54.16) 01/25/2025 Lumbar back pain with radiculopathy affecting right lower extremity (ICD-10 - M54.16) 01/02/2025 Cigarette nicotine dependence without complication (ICD-10 - F17.210) 10/07/2024 Depression screen (ICD-10 - Z13.31) 12/12/2024 Nicotine dependence, cigarettes, uncomplicated (ICD-10 - F17.210) I spent 3 minutes on tobacco cessation counseling. Patient is not willing to attempt cessation. I will continue to employment counselor and educate patient in future appointments about the harm and risks of tobacco abuse. I have discussed different medication options with patient today including chantix, wellbutrin, patches, gum and the process of slowly cutting back on nicotine. 11/10/2024 Lumbar back pain with radiculopathy affecting right lower extremity (ICD-10 - M54.16) 09/05/2024 Radiculopathy, cervical region (ICD-10 - M54.12) 07/12/2024 Cigarette smoker (ICD-10 - F17.210) 08/02/2024 Cigarette smoker (ICD-10 - F17.210) 06/20/2024 Screening for colon cancer (ICD-10 - Z12.11) 06/20/2024 Cervical pain (neck) (ICD-10 - M54.2) 08/02/2024 Body mass index [BMI] 24.0-24.9, adult (ICD-10 - Z68.24) 11/10/2024 Cervical pain (neck) (ICD-10 - M54.2) 12/12/2024 Tobacco use disorder (ICD-10 - F17.200) 01/25/2025 Depression screen (ICD-10 - Z13.31) 02/14/2025 Tobacco use disorder (ICD-10 - F17.200) 03/17/2025 Encounter for immunization (ICD-10 - Z23) 03/17/2025 Immunization not carried out because of patient refusal (ICD-10 - Z28.21) 02/14/2025 Depression screen (ICD-10 - Z13.31) 01/25/2025 Acute nausea with nonbilious vomiting (ICD-10 - R11.2) 12/12/2024 Depression screen (ICD-10 - Z13.31) 06/20/2024 Cigarette smoker (ICD-10 - F17.210) 06/20/2024 Body mass index [BMI] 24.0-24.9, adult (ICD-10 - Z68.24) 01/25/2025 Diarrhea (ICD-10 - R19.7) 06/10/2024 Other see scanned document from [facility] in patients documents. 01/25/2025 Other refilled ondansetron Plan Of Treatment No Information Insurance Providers Payer Name Payer Address Payer Phone Subscriber Number Group Number Insured Name Patient Relationship to Insured Coverage Start Date Coverage End Date [place] [address] [place] [address] [id number] THEODORE TAYLOR Self - patient is the insured Medications Administered Medication Instructions Date of Administration Dosage Notes BUPivacaine HCl 05/31/2024 1 mL DEPO-Medrol 05/31/2024 80 mg Medical (General) History Medical History History ICD Code scoliosis Arthritis bipolar disorder hepatitis C 2008 Back Pain Hospitalization History Reason Date(Month/Year) c section x 4
[2025-06-09 13:09] VITALS: BP 133/84; PULSE 86; RESP 16; TEMP 36.3; O2SAT 98
[2025-06-09 14:13] LABS: Hematocrit 41.1 % (36-47); Hemoglobin 13.40 g/dL (11.27-16.99); Mean Corpuscular HGB Conc 32.6 g/dL (30-55); Mean Corpuscular Hemoglobin 28.2 pg (27-33); Mean Corpuscular Volume 86.5 fl (85-98); Nucleated Red Blood Cells % 0 %; Platelet Count 261 10^3/cmm (157-399); Red Blood Count 4.75 10^6/uL (3.85-5.65); White Blood Count 15.10 10^3/uL (3.29-11.43)
[2025-06-09 14:40] LABS: Alanine Aminotransferase 10 U/L (0-33); Albumin Level 3.9 g/dL (3.5-5.2); Alkaline Phosphatase 161 U/L (35-105); Anion Gap 18.1 (5-19); Aspartate Amino Transferase 16 U/L (0-32); Blood Urea Nitrogen 11 mg/dL (6-20); Calcium 10.8 mg/dL (8.5-10.5); Carbon Dioxide 25 mmol/L (22-29); Chloride 96 mmol/L (98-107); Creatinine Clr Calc Pharmacy 98.0988; Globulin 3.6 g/dL (1.3-4.6); Glucose 130 mg/dL (65-115); Lipase 13 U/L (13-60); Osmolality Calculated 283 mOsm/kg (285-295); Potassium 3.1 mmol/L (3.5-5.1); Sodium 136 mmol/L (136-145); Total Protein 7.5 g/dL (6.6-8.7)
--- NOTE | 2025-06-09 15:01 | ED_ITS ---
Documented by User: PARDEEP Womack 06/09/25 16:51 HPI - Abdominal Pain 2 General: Chief Complaint: Abdominal Pain Stated Complaint: N/D Upper R ABD Time Seen by Provider: 06/09/25 14:49 History of Present Illness: Patient is a 55-year-old female with recent diagnosis of cholelithiasis/cholecystitis, reports to ED with diarrhea for 2 days. Patient states that she feels a diaper of diarrhea in an hour. No recent antibiotics. She does go to the [place]. Recent poison lc to her extensor surfaces bilateral distal extremities. Patient states she has not had any nausea, vomiting. She has some abdominal pain that she believes is associated with her cholelithiasis. She is currently awaiting consultation from surgeon in [place] to reevaluate this issue and possible cholecystectomy. No fevers. No sick contacts. Associated Symptoms: Reports diarrhea and nausea; Denies chills, fever(s) and vomiting Related Data Home Medications ?Medication ?Instructions ?Recorded ?Confirmed olanzapine 5 mg tablet 5 mg PO QPM 04/20/25 5 methadone 40 mg soluble tablet 60 mg PO QAM 04/25/25 0 06/09/25 ondansetron HCl 4 mg tablet 4 mg PO Q6H PRN Nausea And Vomiting 06/09/25 06/09/25 pantoprazole 40 mg tablet,delayed 40 mg PO DAILY 06/0906/09/25 release Previous Rx's ?Medication ?Instructions ?Recorded ondansetron 4 mg disintegrating 4 mg PO Q8H PRN nausea and 06/09/25 tablet vomiting 4 days #14 tabs Allergies Allergy/AdvReac Type Severity Reaction Status Date / Time duloxetine Allergy ADR-Abdominal Verified 05/08/25 08:32 Pain Review of Systems 2 General: Reports: 10 or more systems reviewed and unremarkable except in HPI and below Const: Denies: fever(s) or chills Eyes: Denies: change in vision or blurry vision ENMT: Denies: throat pain Card: Denies: chest pain or palpitations GI: Reports: abdominal pain, nausea and diarrhea; Denies: vomiting : Denies: flank pain or difficulty voiding Musc: Denies: neck pain or back pain Skin/Breast: Denies: rash or pruritus Neuro: Denies: headache(s) or numbness in extremities PFSH ED 2 PFSH: Family History Family/Other Cancer lung, breast Diabetes Heart disease Social History Smoking and tobacco/nicotine status: current every day tobacco/nicotine user Alcohol intake: current Alcohol intake frequency: holidays/special occasions only Physical Exam 2 Const: COMMON NORMALS: no acute distress, average body habitus, patient oriented x3 and alert HENMT: COMMON NORMALS: normocephalic and atraumatic HEAD & SCALP: n ormocephalic and atraumatic Neck/C-Spine: COMMON NORMALS: full ROM and no lymphadenopathy Lymph: LYMPHATIC: no lymphadenopathy noted Chest: COMMONS NORMALS: normal inspection of the chest and normal palpation of entire chest wall Resp: COMMON NORMALS: normal respiratory effort, No retractions and clear to auscultation bilaterally AUSCULTATION: clear to auscultation bilaterally Cardio: COMMON NORMALS: regular rate and regular rhythm RATE: regular rate RHYTHM: regular rhythm GI: COMMON NORMALS: Soft to palpation AUSCULTATION: Yes Hyperactive bowel sounds present PALPATION: Yes Soft to palpation, Yes Tenderness to palpation present (GI) Details: RUQ (mild), No Guarding due to palpation present (GI) and No Rigid due to palpation : COMMON NORMALS: Yes no CVA tenderness BLADDER/KIDNEY EXAM: Yes no CVA tenderness Back/Pelvis: COMMON NORMALS: no CVA tenderness Extremity: COMMON NORMALS: normal to inspection, full ROM and capillary refill normal Neuro: COMMON NORMALS: patient oriented x3 SENSORIUM/ORIENTATION: Yes alert Psych: COMMON NORMALS: mental status grossly normal, Normal thought process present, cooperative, normal affect and speech normal SPEECH: Yes normal speech THOUGHT PROCESS: Normal thought process present Skin: COMMON NORMALS: no rashes or lesions noted and no wounds GENERAL SKIN EXAM: no rashes or lesions noted Course 2 Reevaluation(s): Reevaluation #1: Patient has not had further stools. Vital Signs: Vital signs: Vital Signs Temperature 97.4 F L 06/09/25 13:09 Pulse Rate 71 06/09/25 18:00 Respiratory Rate 16 06/09/25 18:00 Blood Pressure 104/60 06/09/25 17:00 Pulse Oximetry 96 06/09/25 18:00 Oxygen Delivery Me thod Room Air 06/09/25 18:00 MDM - Abdominal Pain Lab Data 06/09/25 13:50 06/09/25 13:50 Labs/Radiology: Radiology Impressions Abdomen X-Ray 06/09/25 15:01 IMPRESSION: No acute findings. Laboratory Results WBC 15.10 10^3/uL (3.29-11.43) H 06/09/25 13:50 RBC 4.75 10^6/uL (3.85-5.65) 06/09/25 13:50 Hgb 13.40 g/dL (11.27-16.99) 06/09/25 13:50 Hct 41.1 % (36-47) 06/09/25 13:50 MCV 86.5 fl (85-98) 06/09/25 13:50 MCH 28.2 pg (27-33) 06/09/25 13:50 MCHC 32.6 g/dL (30-55) 06/09/25 13:50 RDW 12.7 % (12.1-15.1) 06/09/25 13:50 Plt Count 261 10^3/cmm (157-399) 06/09/25 13:50 MPV 10.4 fL (7.4-10.4) 06/09/25 13:50 Neut % (Auto) 59.2 % 06/09/25 13:50 Lymph % (Auto) 18.7 % 06/09/25 13:50 Morris % (Auto) 4.0 % 06/09/25 13:50 Eos % (Auto) 17.4 % 06/09/25 13:50 Baso % (Auto) 0.3 % 06/09/25 13:50 Neut # (Auto) 8.95 10^3/uL (1.8-7.7) H 06/09/25 13:50 Lymph # (Auto) 2.8 10^3/uL (0.8-4.8) 06/09/25 13:50 Morris # (Auto) 0.6 10^3/uL (0.2-0.9) 06/09/25 13:50 Eos # (Auto) 2.6 10^3/uL (0.0-0.8) H 06/09/25 13:50 Baso # (Auto) 0.1 10^3/uL (0.0-0.1) 06/09/25 13:50 Nucleated RBC % (auto) 0 % 06/09/25 13:50 Nucleated RBCs # 0.0 /100WBC 06/09/25 13:50 Sodium 136 mmol/L (136-145) 06/09/25 13:50 Potassium 3.1 mmol/L (3.5-5.1) L 06/09/25 13:50 Chloride 96 mmol/L (98-107) L 06/09/25 13:50 Carbon Dioxide 25 mmol/L (22-29) 06/09/25 13:50 Anion Gap 18.1 (5-19) 06/09/25 13:50 BUN 11 mg/dL (6-20) 06/09/25 13:50 Creatinine 0.6 mg/dL (0.5-0.9) 06/09/25 13:50 GFR Calculation 103.8 mL/min (90-130) 06/09/25 13:50 Glucose 130 mg/dL (65-115) H 06/09/25 13:50 Calculated Osmolality 283 mOsm/kg (285-295) L 06/09/25 13:50 Calcium 10.8 mg/dL (8.5-10.5) H 06/09/25 13:50 Total Bilirubin 0.3 mg/dL (0.15-1.2) 06/09/25 13:50 AST 16 U/L (0-32) 06/09/25 13:50 ALT 10 U/L (0-33) 06/09/25 13:50 Alkaline Phosphatase 161 U/L (35-105) H 06/09/25 13:50 Total Protein 7.5 g/dL (6.6-8.7) 06/09/25 13:50 Albumin 3.9 g/dL (3.5-5.2) 06/09/25 13:50 Globulin 3.6 g/dL (1.3-4.6) 06/09/25 13:50 Lipase 13 U/L (13-60) 06/09/25 13:50 C. difficile (PCR) Negative (Negative) 06/09/25 16:33 XR interpretation done by ED provider, pending radiology final review ED provider radiology interpretation(s): Non specific bowel gas pattern, no dilation. Discharge Plan Discharge Patient Disposition: Home Clinical Impression: Gastroenteritis, Hypokalemia, Hypercalcemia Condition: Stable Prescriptions: New ondansetron 4 mg tablet,disintegrating 4 mg PO Q8H PRN (Reason: nausea and vomiting) 4 Days Qty: 14 0RF No Action olanzapine 5 mg Tablet 5 mg PO QPM methadone 40 mg Tablet,Soluble 60 mg PO QAM ondansetron HCl 4 mg tablet 4 mg PO Q6H PRN (Reason: Nausea And Vomiting) pantoprazole 40 mg tablet,delayed release (DR/EC) 40 mg PO DAILY Discharge Orders: Discharge ED (Routine); Ordered 06/09/25 Ordered By: Al العلي Referrals: Mendez Recinos MD [Primary Care Provider, Internal Medicine] Patient Instructions: Opioid Safety, Pain Management, Patient Portal & Mable Instructions Activity Restrictions/Additional Instructions: You will need to have your labs redrawn with your doctor next week regarding your elevated calcium. This is probably due to dehydration, or taking extra calcium such as Tums. Do not take exogenous calcium such as Tums. Continue your increase of fluid intake. Zofran has been sent to the pharmacy for nausea, and does help with diarrhea. Do not take more than 3 times a day. Print Language: Angolan Sign Out Sign Out Data: Patient Sign Out occurred on 06/09/25 at 17:09. Patient's care was discussed, and care was transferred from PARDEEP Womack to PARDEEP Stephen. Coding Level of Care Code ED Employee Benefits Insurance Agent for [employer] Documented by User: PARDEEP Stephen 06/09/25 20:07 HPI - Abdominal Pain 2 General: Chief Complaint: Abdominal Pain Stated Complaint: N/D Upper R ABD Time Seen by Provider: 06/09/25 14:49 Related Data Home Medications ?Medication ?Instructions ?Recorded ?Confirmed olanzapine 5 mg tablet 5 mg PO QPM 04/20/25 5 methadone 40 mg soluble tablet 60 mg PO QAM 04/25/25 0 06/09/25 ondansetron HCl 4 mg tablet 4 mg PO Q6H PRN Nausea And Vomiting 06/09/25 06/09/25 pantoprazole 40 mg tablet,delayed 40 mg PO DAILY 06/0906/09/25 release Previous Rx's ?Medication ?Instructions ?Recorded ondansetron 4 mg disintegrating 4 mg PO Q8H PRN nausea and 06/09/25 tablet vomiting 4 days #14 tabs Allergies Allergy/AdvReac Type Severity Reaction Status Date / Time duloxetine Allergy ADR-Abdominal Verified 05/08/25 08:32 Pain PFSH ED 2 PFSH: Family History Family/Other Cancer lung, breast Diabetes Heart disease Social History Smoking and tobacco/nicotine status: current every day tobacco/nicotine user Alcohol intake: current Alcohol intake frequency: holidays/special occasions only Course 2 Vital Signs: Vital signs: Vital Signs Temperature 97.4 F L 06/09/25 13:09 Pulse Rate 71 06/09/25 18:00 Respiratory Rate 16 06/09/25 18:00 Blood Pressure 104/60 06/09/25 17:00 Pulse Oximetry 96 06/09/25 18:00 Oxygen Delivery Me thod Room Air 06/09/25 18:00 MDM - Abdominal Pain Medical Decision Making Patient presented with diarrhea, states she is currently undergoing evaluation in [place] for her gallbladder and possible cholecystectomy. Care of patient was assumed by myself at shift change. Patient had diarrhea for the past couple of days, no recent antibiotic use. Her vitals have been stable. Lab work shows mild elevation in her white blood cell count with a left shift, suspect secondary to the diarrhea. Mild decrease in her potassium, she is given oral potassium here. C. difficile PCR was negative, stool sample also obtained for send out patient will be informed of those results. The rest of her metabolic panel and lab work overall was unremarkable including negative abdominal x-ray for any obstructive process. After fluids and nausea medications here, patient states she feels quite a bit better. She states she is ready to go home, will send Zofran to pharmacy, will have her do clear liquid diet at home and return precautions are given. Lab Data 06/09/25 13:50 06/09/25 13:50 Labs/Radiology: Radiology Impressions Abdomen X-Ray 06/09/25 15:01 IMPRESSION: No acute findings. Laboratory Results WBC 15.10 10^3/uL (3.29-11.43) H 06/09/25 13:50 RBC 4.75 10^6/uL (3.85-5.65) 06/09/25 13:50 Hgb 13.40 g/dL (11.27-16.99) 06/09/25 13:50 Hct 41.1 % (36-47) 06/09/25 13:50 MCV 86.5 fl (85-98) 06/09/25 13:50 MCH 28.2 pg (27-33) 06/09/25 13:50 MCHC 32.6 g/dL (30-55) 06/09/25 13:50 RDW 12.7 % (12.1-15.1) 06/09/25 13:50 Plt Count 261 10^3/cmm (157-399) 06/09/25 13:50 MPV 10.4 fL (7.4-10.4) 06/09/25 13:50 Neut % (Auto) 59.2 % 06/09/25 13:50 Lymph % (Auto) 18.7 % 06/09/25 13:50 Morris % (Auto) 4.0 % 06/09/25 13:50 Eos % (Auto) 17.4 % 06/09/25 13:50 Baso % (Auto) 0.3 % 06/09/25 13:50 Neut # (Auto) 8.95 10^3/uL (1.8-7.7) H 06/09/25 13:50 Lymph # (Auto) 2.8 10^3/uL (0.8-4.8) 06/09/25 13:50 Morris # (Auto) 0.6 10^3/uL (0.2-0.9) 06/09/25 13:50 Eos # (Auto) 2.6 10^3/uL (0.0-0.8) H 06/09/25 13:50 Baso # (Auto) 0.1 10^3/uL (0.0-0.1) 06/09/25 13:50 Nucleated RBC % (auto) 0 % 06/09/25 13:50 Nucleated RBCs # 0.0 /100WBC 06/09/25 13:50 Sodium 136 mmol/L (136-145) 06/09/25 13:50 Potassium 3.1 mmol/L (3.5-5.1) L 06/09/25 13:50 Chloride 96 mmol/L (98-107) L 06/09/25 13:50 Carbon Dioxide 25 mmol/L (22-29) 06/09/25 13:50 Anion Gap 18.1 (5-19) 06/09/25 13:50 BUN 11 mg/dL (6-20) 06/09/25 13:50 Creatinine 0.6 mg/dL (0.5-0.9) 06/09/25 13:50 GFR Calculation 103.8 mL/min (90-130) 06/09/25 13:50 Glucose 130 mg/dL (65-115) H 06/09/25 13:50 Calculated Osmolality 283 mOsm/kg (285-295) L 06/09/25 13:50 Calcium 10.8 mg/dL (8.5-10.5) H 06/09/25 13:50 Total Bilirubin 0.3 mg/dL (0.15-1.2) 06/09/25 13:50 AST 16 U/L (0-32) 06/09/25 13:50 ALT 10 U/L (0-33) 06/09/25 13:50 Alkaline Phosphatase 161 U/L (35-105) H 06/09/25 13:50 Total Protein 7.5 g/dL (6.6-8.7) 06/09/25 13:50 Albumin 3.9 g/dL (3.5-5.2) 06/09/25 13:50 Globulin 3.6 g/dL (1.3-4.6) 06/09/25 13:50 Lipase 13 U/L (13-60) 06/09/25 13:50 C. difficile (PCR) Negative (Negative) 06/09/25 16:33 Discharge Plan Discharge Patient Disposition: Home Clinical Impression: Gastroenteritis, Hypokalemia, Hypercalcemia Condition: Stable Prescriptions: New ondansetron 4 mg tablet,disintegrating 4 mg PO Q8H PRN (Reason: nausea and vomiting) 4 Days Qty: 14 0RF No Action olanzapine 5 mg Tablet 5 mg PO QPM methadone 40 mg Tablet,Soluble 60 mg PO QAM ondansetron HCl 4 mg tablet 4 mg PO Q6H PRN (Reason: Nausea And Vomiting) pantoprazole 40 mg tablet,delayed release (DR/EC) 40 mg PO DAILY Discharge Orders: Discharge ED (Routine); Ordered 06/09/25 Ordered By: Al العلي Referrals: Mendez Recinos MD [Primary Care Provider, Internal Medicine] Patient Instructions: Opioid Safety, Pain Management, Patient Portal & Mable Instructions Activity Restrictions/Additional Instructions: You will need to have your labs redrawn with your doctor next week regarding your elevated calcium. This is probably due to dehydration, or taking extra calcium such as Tums. Do not take exogenous calcium such as Tums. Continue your increase of fluid intake. Zofran has been sent to the pharmacy for nausea, and does help with diarrhea. Do not take more than 3 times a day. Print Language: Angolan Sign Out Sign Out Data: Patient Sign Out occurred on 06/09/25 at 17:09. Patient's care was discussed, and care was transferred from PARDEEP Womack to PARDEEP Stephen. 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
--- NOTE | 2025-06-09 15:01 | XRR_ITS ---
PROCEDURE INFORMATION: Exam: XR Abdomen Exam date and time: 06/09/2025 3:36 PM Age: 55 years old Clinical indication: Abdominal pain; Generalized; Additional info: Hyperactive bowel sounds TECHNIQUE: Imaging protocol: Radiologic exam of the abdomen. Views: 2 Views. Upright and supine views. COMPARISON: MR MRCP [id number] 04/19/2025 7:05 AM FINDINGS: Gastrointestinal tract: Normal. No bowel dilation. Intraperitoneal space: Normal. No free air. Organs: The liver appears borderline enlarged. Bones/joints: Unremarkable for age. XR/XR abdomen min 2V [id number] IMPRESSION: No acute findings.
[2025-06-09] MEDS: ondansetron 2 mg/ML SDV 2 mL 4 MG IVP (15:32)
--- NOTE | 2025-06-09 16:21 | PC.PHAR ---
Unable to verify last time pt picked up her methadone. [facility] unavailable at this time.
[2025-06-09 17:00] VITALS: BP 104/60; PULSE 74; RESP 16; O2SAT 97
[2025-06-09 17:44] LABS: C.Diff PCR (Lab) NEGATIVE (Negative)
[2025-06-09 18:00] VITALS: PULSE 71; RESP 16; O2SAT 96
== END 2025-06-09 19:06 | disposition home or self-care (01) ==
PROVIDERS: Emergency Medicine; Physician Assistant; Emergency Provider Physician Assistant; PCP Internal Medicine
DX: K52.9 Noninfective gastroenteritis and colitis, unspecified (principal); E87.6 Hypokalemia; E83.52 Hypercalcemia; Z72.0 Tobacco use
CPT/HCPCS: 36415; 74019; 80053; 83630; 83690; 85025; 87045; 87427; 87449; 87493; 96374; 99284; J2405; J7030; J9999